=== PATIENT | female | born 1975 | race Caucasian/White ===

== ENCOUNTER 2016-08-12 22:48 | Observation (INO) | payer MEDICAID ==
[~2016-08-12] VITALS: Ht 157.5 cm; Wt 72.6 kg
[~2016-08-12 22:48] MED LIST: PARO25TA8 PO
== END 2016-08-13 01:28 | disposition home or self-care (01) ==
LOC: SPU 22:48
PROVIDERS: ADMIT Specialist; ATTEND Specialist
DX: O36.8120 Decreased fetal movements, second trimester, not applicable or unspecified (principal); O26.892 Other specified pregnancy related conditions, second trimester; R10.31 Right lower quadrant pain; O46.92 Antepartum hemorrhage, unspecified, second trimester; Z3A.23 23 weeks gestation of pregnancy
CPT/HCPCS: 76805; 81002; G0378 ×2

== ENCOUNTER 2019-05-23 11:12 | Emergency (ER) | payer MEDICAID ==
[~2019-05-23] VITALS: Ht 157.5 cm; Wt 58.1 kg
[2019-05-23 11:12] VITALS: BP_SYST 121
[~2019-05-23 11:12] MED LIST changes: +PARO25TA15 PO; -PARO25TA8 PO
--- NOTE | 2019-05-23 11:12 | NUR ---
BROUGHT BACK TO BED #7 AND TRIAGED. REPORT GIVEN TO MAYKEL
--- NOTE | 2019-05-23 11:45 | NUR ---
Patient presentes to ER C/O fever. Patient A&Ox4, ambulatory to ER, afebrile, skin pink and warm, pain 7/10, denies N/V/D. Patient states she has fever and cough x1 day, self medicatied with OTC PO Ibuprofen.
--- NOTE | 2019-05-23 12:05 | NUR ---
ER Dr. Seals at bedside examining patient.
[2019-05-23] MEDS ORDERED: ACETAMINOPHEN 500 MG TABLET PO ONE (12:15)
[2019-05-23 13:05] VITALS: BP_SYST 124
--- NOTE | 2019-05-23 13:05 | NUR ---
Note undone in EDM - 05/23/19 at 1557 by [email or web address] d Patient given written and verbal discharge instructions and verbalizes understanding. ER discussed with patient the results and treatment provided. Patient in stable condition. ID arm band removed. Rx of Motrin & Augmentin given. Patient educated on pain management and to follow up with PMD. Pain Scale 5/10 tolerable for patient. Opportunity for questions provided and answered. Medication side effect fact sheet provided.
--- NOTE | 2019-05-23 13:05 | NUR ---
Patient given written and verbal discharge instructions and verbalizes understanding. ER MD discussed with patient the results and treatment provided. Patient in stable condition. ID arm band removed. Rx of Motrin & Augmentin given. Patient educated on pain management and to follow up with PMD. Pain Scale 5/10 tolerable for patient. Opportunity for questions provided and answered. Medication side effect fact sheet provided.
== END 2019-05-23 13:05 | disposition home or self-care (01) ==
LOC: SED 11:12
DX: J40 Bronchitis, not specified as acute or chronic (principal); F41.9 Anxiety disorder, unspecified; Z88.1 Allergy status to other antibiotic agents
CPT/HCPCS: 99283

== ENCOUNTER 2019-10-13 18:48 | Emergency (ER) | payer MEDICAID ==
[~2019-10-13] VITALS: Ht 157.5 cm; Wt 58.1 kg
[2019-10-13 18:59] VITALS: BP_SYST 126
--- NOTE | 2019-10-13 19:00 | NUR ---
Patient triaged and placed in waiting room. VSS and patient appears in no acute distress at this time. Accompanied by self , awaiting available bed, and MD notified of need for MSE.
--- NOTE | 2019-10-13 22:53 | NUR ---
Patient to ER bed 1 to gown for evaluation. Side rails up. Report given to MIGUE.
--- NOTE | 2019-10-13 22:55 | NUR ---
Pt presents to the ER c/o abdominal pain x today. Pt reports nausea, denies v/d, CP, fever, sob. Allergies to ciproflaxin.
--- NOTE | 2019-10-13 23:20 | NUR ---
ER at bedside examining patient.
[2019-10-13 23:46] LABS: BILIRUBIN,URINE NEGATIVE (NEGATIVE); BLOOD, URINE NEGATIVE (NEGATIVE); CLARITY/URINE CLEAR (CLEAR); COLOR,URINE YELLOW (YELLOW); GLUCOSE,URINE NEGATIVE (NEGATIVE); KETONES,URINE NEGATIVE (NEGATIVE); LEUKOCYTE ESTERASE ,URINE TRACE (NEGATIVE); NITRITE, URINE NEGATIVE (NEGATIVE); PH,URINE 6.5 (5.0-8.0); PROTEIN URINE NEGATIVE (NEGATIVE); UROBILINOGEN,URINE 0.2 (0.2-1.0)
[2019-10-14 00:04] LABS: CREATININE 0.8 mg/dL (0.55-1.30); POTASSIUM 3.2 mmol/L (3.5-5.1)
[2019-10-14 00:05] LABS: ALBUMIN 3.7 g/dL (3.4-4.8); TOTAL BILIRUBIN 0.1 mg/dL (0.0-1.0)
[2019-10-14 00:10] LABS: BASOPHILS % (AUTO) 0.6 % (0.0-2.0); EOSINOPHILS # (AUTO) 0.2 K/uL (0.0-0.4); EOSINOPHILS % (AUTO) 2.8 % (0.0-4.0); HEMATOCRIT 37.4 % (36-48); HEMOGLOBIN 12.6 g/dL (12.0-16.0); LYMPHOCYTES # (AUTO) 2.4 K/uL (1.0-5.5); MEAN CORPUSCULAR HEMOGLOBIN 28 pg (27-31); MEAN CORPUSCULAR HGB CONC 34 % (32-36); MEAN CORPUSCULAR VOLUME 84 fL (79.0-98.0); MONOCYTES # (AUTO) 0.4 K/uL (0.0-1.0); MONOCYTES % (AUTO) 6.9 % (1.7-9.3); NEUTROPHILS # (AUTO) 3.1 K/uL (1.8-7.7); NEUTROPHILS % (AUTO) 50.7 % (40.0-70.0); PLATELET COUNT (AUTO) 239 K/uL (130-430); RED BLOOD CELL COUNT(AUTO) 4.47 MIL/uL (4.2-6.2); RED CELL DISTRIBUTION WIDTH 14.9 % (9.0-15.0); WHITE BLOOD COUNT (AUTO) 6.2 K/uL (4.8-10.8)
--- NOTE | 2019-10-14 00:10 | NUR ---
Pt requesting pain medication. Dr murrell notified.
[2019-10-14] MEDS ORDERED: POTASSIUM CHLORIDE 10 MEQ TAB.PRT.SR PO ONE (00:30)
[2019-10-14 00:39] LABS: BACTERIA,URINE FEW /HPF (None Seen); RBC,URINE 0-3 /HPF (0-3)
[2019-10-14] MEDS ORDERED: KETOROLAC TROMETHAMINE 30 MG VIAL IVP ONE (01:00)
[2019-10-14] MEDS ORDERED: HYDROcodone/ACETAMIN 5-325 MG TAB (NORCO/ VICODIN) PO ONE (02:00)
--- NOTE | 2019-10-14 02:31 | NUR ---
Patient given written and verbal discharge instructions and verbalizes understanding. ER MD discussed with patient the results and treatment provided. Patient in stable condition. ID arm band removed. IV catheter removed intact and dressing applied, no active bleeding. Opportunity for questions provided and answered. Medication side effect fact sheet provided.
[2019-10-14 02:32] VITALS: BP_SYST 126
== END 2019-10-14 02:32 | disposition home or self-care (01) ==
LOC: SED 18:48
DX: R10.31 Right lower quadrant pain (principal); R11.0 Nausea
CPT/HCPCS: 36415; 76830; 76857; 80053; 81000; 84703; 85025; 87086; 96374; 99284; J1885

== ENCOUNTER 2020-02-19 15:52 | Emergency (ER) | payer MEDICAID, SELFPAY ==
[~2020-02-19] VITALS: Ht 157.5 cm; Wt 58.1 kg
[2020-02-19 16:00] VITALS: BP_SYST 99
[2020-02-19 17:45] VITALS: BP_SYST 99
== END 2020-02-19 17:45 | disposition home or self-care (01) ==
LOC: SED 15:52
DX: J06.9 Acute upper respiratory infection, unspecified (principal); Z20.828 Contact with and (suspected) exposure to other viral communicable diseases
CPT/HCPCS: 71045; 86710; 99284; U0003; 36415

== ENCOUNTER 2023-01-30 13:23 | Emergency (ER) | payer MEDICAID ==
[~2023-01-30] VITALS: Ht 157.5 cm; Wt 61.2 kg
[~2023-01-30 13:23] MED LIST changes: -PARO25TA15 PO; +PARO25TA21 PO
[2023-01-30 13:25] VITALS: BP_SYST 116; PULSE 80; RESP 19; TEMP 97.6; O2SAT 100
[2023-01-30] MEDS ORDERED: KETOROLAC TROMETHAMINE 60 MG/2 ML VIAL IM ONE (14:30)
[2023-01-30 16:52] LABS: STREPTOCOCCUS A SCREEN (RAPID) NEGATIVE (NEGATIVE)
[2023-01-30 17:02] LABS: INFLUENZA TYPE A Negative (NEGATIVE); INFLUENZA TYPE B NEGATIVE (NEGATIVE)
[2023-01-30] MEDS ORDERED: DEXAMETHASONE SOD PHOSPHATE 10 MG/ML VIAL IM ONE (17:15)
[2023-01-30] MEDS ORDERED: DEC4 PO (17:16)
[2023-01-30] MEDS ORDERED: IBUP-1971 PO (17:16)
[2023-01-30 17:26] VITALS: BP_SYST 112; PULSE 76; RESP 18; TEMP 97; O2SAT 100
== END 2023-01-30 17:32 | disposition home or self-care (01) ==
LOC: SED 13:23
DX: J04.0 Acute laryngitis (principal); B34.9 Viral infection, unspecified; M54.6 Pain in thoracic spine; M79.10 Myalgia, unspecified site; Z88.1 Allergy status to other antibiotic agents; Z79.899 Other long term (current) drug therapy; Z20.822 Contact with and (suspected) exposure to COVID-19
CPT/HCPCS: 99285; 71045; 87426; 86403; 36415; 93005; 81025; 96372; 87081; 87804 ×2; J1100; J1885

== ENCOUNTER 2023-04-24 21:44 | Emergency (ER) | payer MEDICAID ==
[~2023-04-24] VITALS: Ht 157.5 cm; Wt 62.6 kg
[~2023-04-24 21:44] MED LIST changes: +DEC4 PO; +IBUP-1971 PO
[2023-04-24 22:20] VITALS: BP_SYST 125; PULSE 73; RESP 16; TEMP 97.5; O2SAT 99
[2023-04-24 23:33] LABS: BILIRUBIN,URINE NEGATIVE (NEGATIVE); BLOOD, URINE 3+ (NEGATIVE); CLARITY/URINE CLEAR (CLEAR); COLOR,URINE YELLOW (YELLOW); GLUCOSE,URINE NEGATIVE (NEGATIVE); KETONES,URINE NEGATIVE (NEGATIVE); LEUKOCYTE ESTERASE ,URINE 2+ (NEGATIVE); NITRITE, URINE NEGATIVE (NEGATIVE); PH,URINE 6.5 (5.0-8.0); PROTEIN URINE NEGATIVE (NEGATIVE); UROBILINOGEN,URINE 0.2 (0.2-1.0)
[2023-04-25 00:11] LABS: BACTERIA,URINE MODERATE /HPF (None Seen)
[2023-04-25] MEDS ORDERED: CIPR500T5 PO (01:09)
[2023-04-25] MEDS ORDERED: CIPROFLOXACIN HCL 500 MG TABLET PO ONE (01:15)
[2023-04-25 01:18] VITALS: BP_SYST 125; PULSE 73; RESP 16; TEMP 97.5; O2SAT 99
== END 2023-04-25 01:16 | disposition home or self-care (01) ==
LOC: SED 21:44
DX: R30.0 Dysuria (principal); R10.9 Unspecified abdominal pain; Z79.899 Other long term (current) drug therapy
CPT/HCPCS: 81000; 81001; 81015; 87086; 99283

== ENCOUNTER 2023-05-10 17:13 | Emergency (ER) | payer MEDICAID ==
[~2023-05-10] VITALS: Ht 157.5 cm; Wt 63.5 kg
[~2023-05-10 17:13] MED LIST changes: +CIPR500T5 PO
[2023-05-10 17:30] VITALS: BP_SYST 126; PULSE 80; RESP 17; TEMP 97.8; O2SAT 98
[2023-05-10 17:47] LABS: BILIRUBIN,URINE NEGATIVE (NEGATIVE); BLOOD, URINE 3+ (NEGATIVE); CLARITY/URINE CLOUDY (CLEAR); COLOR,URINE YELLOW (YELLOW); GLUCOSE,URINE NEGATIVE (NEGATIVE); KETONES,URINE NEGATIVE (NEGATIVE); LEUKOCYTE ESTERASE ,URINE 3+ (NEGATIVE); NITRITE, URINE NEGATIVE (NEGATIVE); PROTEIN URINE 2+ (NEGATIVE); UROBILINOGEN,URINE 0.2 (0.2-1.0)
[2023-05-10 18:08] LABS: BACTERIA,URINE MODERATE /HPF (None Seen); WBC,URINE 20-50 /HPF (0-3)
[2023-05-10 18:40] LABS: BASOPHILS % (AUTO) 0.3 % (0.0-2.0); EOSINOPHILS # (AUTO) 0.1 K/uL (0.0-0.4); EOSINOPHILS % (AUTO) 1.6 % (0.0-4.0); HEMATOCRIT 37.5 % (36-48); HEMOGLOBIN 12.8 g/dL (12.0-16.0); LYMPHOCYTES # (AUTO) 1.9 K/uL (1.0-5.5); LYMPHOCYTES % (AUTO) 21.4 % (20.5-51.5); MEAN CORPUSCULAR HEMOGLOBIN 30 pg (27-31); MEAN CORPUSCULAR HGB CONC 34 % (32-36); MEAN CORPUSCULAR VOLUME 87 fL (79.0-98.0); MONOCYTES # (AUTO) 0.6 K/uL (0.0-1.0); MONOCYTES % (AUTO) 6.9 % (1.7-9.3); NEUTROPHILS # (AUTO) 6.3 K/uL (1.8-7.7); NEUTROPHILS % (AUTO) 69.8 % (40.0-70.0); PLATELET COUNT (AUTO) 213 K/uL (130-430); RED BLOOD CELL COUNT(AUTO) 4.29 MIL/uL (4.2-6.2); RED CELL DISTRIBUTION WIDTH 13.8 % (9.0-15.0)
[2023-05-10 18:43] LABS: SERUM HCG (QUALITATIVE) NEGATIVE (NEGATIVE)
[2023-05-10 18:46] LABS: ALBUMIN 3.7 g/dL (3.4-4.8); CALCIUM 8.1 mg/dL (8.4-11.0); CREATININE 0.92 mg/dL (0.55-1.30); TOTAL BILIRUBIN 0.3 mg/dL (0.0-1.0); TOTAL PROTEIN, SERUM 7.5 g/dL (6.4-8.3)
[2023-05-10 18:58] LABS: BILIRUBIN,DIRECT 0.1 mg/dL (0.0-0.3)
[2023-05-10 19:08] LABS: BILIRUBIN,URINE NEGATIVE (NEGATIVE); BLOOD, URINE 3+ (NEGATIVE); COLOR,URINE YELLOW (YELLOW); GLUCOSE,URINE NEGATIVE (NEGATIVE); KETONES,URINE NEGATIVE (NEGATIVE); LEUKOCYTE ESTERASE ,URINE 1+ (NEGATIVE); NITRITE, URINE NEGATIVE (NEGATIVE); PROTEIN URINE NEGATIVE (NEGATIVE); UROBILINOGEN,URINE 0.2 (0.2-1.0)
[2023-05-10 19:42] LABS: CLARITY/URINE HAZY (CLEAR)
[2023-05-10 20:08] LABS: BACTERIA,URINE FEW /HPF (None Seen); WBC,URINE 20-50 /HPF (0-3)
[2023-05-10 20:09] LABS: MUCUS,URINE None Seen /LPF (None Seen)
[2023-05-10] MEDS ORDERED: NITR-85 PO (20:12)
[2023-05-10] MEDS: cefTRIAXone 1 GM in LIDOCAINE 1%, 20 ML MDV 2.1 ML IM ONE (20:21)
[2023-05-10 20:32] VITALS: BP_SYST 118; PULSE 67; RESP 16; TEMP 97.4; O2SAT 96
== END 2023-05-10 20:29 | disposition home or self-care (01) ==
LOC: SED 17:13
DX: N12 Tubulo-interstitial nephritis, not specified as acute or chronic (principal); N39.0 Urinary tract infection, site not specified; Z79.899 Other long term (current) drug therapy
CPT/HCPCS: 99285; 74176; 80076; 80048; 81001; 82150; 84703; 83690; 85025; 87086; 36415; 76376; 96372; 83605; 82397; J0696; 81000; 81015; J2001

== ENCOUNTER 2023-10-12 07:19 | Day surgery (SDC) | payer MEDICAID ==
[~2023-10-12] VITALS: Ht 157.5 cm; Wt 64.4 kg
[~2023-10-12 07:19] MED LIST changes: +NITR-85 PO
[2023-10-12] MEDS ORDERED: BENZOCAINE 20% 0.5mL UD SPRAY MM ONE (08:48)
[2023-10-12] MEDS ORDERED: MEPERIDINE 100 MG INJ. 100 MG/ML VIAL ONE (08:48)
[2023-10-12] MEDS ORDERED: MIDAZOLAM HCL 5 MG/5 ML VIAL ONE ×2 (08:49→09:14)
[2023-10-12 08:50] VITALS: O2SAT 99
[2023-10-12] MEDS ORDERED: ONDANSETRON HCL 4 MG/2 ML VIAL ONE (09:24)
[2023-10-12 12:51] VITALS: BP_SYST 96; PULSE 84; RESP 9
== END 2023-10-12 10:50 | disposition home or self-care (01) ==
LOC: SGI 07:19 → SMU 07:21 → SGI 10:50
PROVIDERS: ATTEND Internal Medicine
DX: R19.4 Change in bowel habit (principal); K63.89 Other specified diseases of intestine; K31.89 Other diseases of stomach and duodenum; R10.13 Epigastric pain; K29.50 Unspecified chronic gastritis without bleeding; R10.84 Generalized abdominal pain; K64.8 Other hemorrhoids; F41.9 Anxiety disorder, unspecified; F32.A Depression, unspecified; E78.00 Pure hypercholesterolemia, unspecified; Z98.890 Other specified postprocedural states; Z79.899 Other long term (current) drug therapy
CPT/HCPCS: 45380; 43239; 88305; 88312; 88313; 99153; 99152; G0378; J2250; J2405; J2175